=== PATIENT | female | born 1975 | race Caucasian/White ===

== ENCOUNTER 2019-07-28 16:24 | Emergency (ER) | payer OTHER ==
[~2019-07-28] VITALS: Ht 165.1 cm; Wt 72.6 kg
[2019-07-28] MEDS ORDERED: TESSALON PERLE100 MG PO (17:32)
== END 2019-07-28 17:41 | disposition home or self-care (01) ==
LOC: ED 16:24
DX: J10.1 Influenza due to other identified influenza virus with other respiratory manifestations (principal); F17.200 Nicotine dependence, unspecified, uncomplicated

== ENCOUNTER 2019-12-16 09:43 | Emergency (ER) | payer OTHER ==
[~2019-12-16] VITALS: Ht 167.6 cm; Wt 70.3 kg
[~2019-12-16 09:43] MED LIST: TESSALON PERLE100 MG PO
[2019-12-16 10:06] LABS: HEMATOCRIT 42.6 % (37.0-47.0); MEAN CELL VOLUME 87.5 fl (81.0-99.0); MEAN CORPUSCULAR HGB CONC 33.1 g/dl (33.0-37.0); MEAN PLATELET VOLUME 10.1 fl (9.6-12.3); PLATELET COUNT AUTOMATED 337 10*3/uL (130-400); RED BLOOD COUNT 4.87 10*6/uL (4.10-5.10); RED CELL DISTRI WIDTH 13.1 % (0-14.5)
[2019-12-16 10:21] LABS: ALBUMIN 3.7 gm/dl (3.1-4.5); ALKALINE PHOSPHATASE 82 U/L (45-117); BUN 8 mg/dl (7-24); CHLORIDE 106 mmol/L (98-107); CREATININE 0.76 mg/dL (0.55-1.02); POTASSIUM 3.4 mmol/L (3.5-5.1); SGOT/AST 15 IU/L (3-35); SGPT/ALT 26 U/L (12-78); SODIUM 137 mmol/L (136-145); TOTAL PROTEIN 7.2 gm/dL (6.4-8.2)
[2019-12-16 10:24] LABS: BASOPHILS 1 % (0-1); TOTAL CELLS COUNTED 100 #CELLS
[2019-12-16 10:25] LABS: OVALOCYTES FEW; PLATELET SUFFICIENCY NORMAL (NORMAL); POLYCHROMASIA SLIGHT
[2019-12-16 10:57] LABS: BILIRUBIN NEGATIVE (NEGATIVE); BLOOD 3+ (NEGATIVE); CLARITY CLOUDY (CLEAR); COLOR RED (YELLOW); GLUCOSE NEGATIVE (NEGATIVE); KETONE NEGATIVE (NEGATIVE); LEUKO ESTERASE TRACE (NEGATIVE); NITRITE NEGATIVE (NEGATIVE); UROBILINOGEN 0.2 E.U./dl (0.2-1.0)
[2019-12-16 10:58] LABS: RBC TNTC rbc/hpf (0-2)
[2019-12-16 10:59] LABS: BACTERIA 1+
== END 2019-12-16 11:39 | disposition home or self-care (01) ==
LOC: ED 09:43
PROVIDERS: Nurse Practitioner Family
DX: N93.8 Other specified abnormal uterine and vaginal bleeding (principal); Z79.899 Other long term (current) drug therapy

== ENCOUNTER → 2021-02-15 | Outpatient (CLI) | payer OTHER | END | disposition home or self-care (01) | LOC: COVID19 15:43 | PROVIDERS: ATTEND Internal Medicine | DX: Z11.52 Encounter for screening for COVID-19 (principal) ==

== ENCOUNTER → 2021-02-27 | Outpatient (CLI) | payer OTHER | END | disposition home or self-care (01) | LOC: COVID19 15:36 | PROVIDERS: ATTEND Internal Medicine | DX: U07.1 COVID-19 (principal) ==

== ENCOUNTER 2021-09-19 17:41 | Emergency (ER) | payer SELFPAY ==
[~2021-09-19] VITALS: Ht 167.6 cm; Wt 72.6 kg
[2021-09-19] MEDS ORDERED: PAROXETINE HCL20 MG PO (17:55)
[2021-09-19] MEDS ORDERED: AMOX-CLAV 875-1 EACH PO (17:56)
== END 2021-09-19 19:44 | disposition home or self-care (01) ==
LOC: ED 17:41
DX: H92.02 Otalgia, left ear (principal); Z79.899 Other long term (current) drug therapy; F17.200 Nicotine dependence, unspecified, uncomplicated

== ENCOUNTER 2021-10-29 01:32 | Emergency (ER) | payer SELFPAY ==
[~2021-10-29] VITALS: Ht 172.7 cm; Wt 86.2 kg
[~2021-10-29 01:32] MED LIST changes: +AMOX-CLAV 875-1 EACH PO; +PAROXETINE HCL20 MG PO
[2021-10-29 03:34] LABS: HEMATOCRIT 38.4 % (37.0-47.0); MEAN CELL VOLUME 88.1 fl (81.0-99.0); MEAN CORPUSCULAR HGB 28.9 pg (27.0-31.0); MEAN CORPUSCULAR HGB CONC 32.8 g/dl (33.0-37.0); MEAN PLATELET VOLUME 9.4 fl (9.6-12.3); PLATELET COUNT AUTOMATED 325 10*3/uL (130-400); RED BLOOD COUNT 4.36 10*6/uL (4.10-5.10); RED CELL DISTRI WIDTH 13.9 % (0-14.5); WHITE BLOOD COUNT 14.1 10*3/uL (4.8-10.8)
[2021-10-29 03:36] LABS: MANUAL DIFF REFLEX YES
[2021-10-29 03:50] LABS: ALKALINE PHOSPHATASE 70 U/L (45-117); BUN 11 mg/dl (7-24); CHLORIDE 111 mmol/L (98-107); CREATININE 0.64 mg/dL (0.55-1.02); LIPASE 112 U/L (73-393); POTASSIUM 3.3 mmol/L (3.5-5.1); SGOT/AST 8 IU/L (3-35); SGPT/ALT 21 U/L (12-78); SODIUM 140 mmol/L (136-145); TOTAL PROTEIN 5.9 gm/dL (6.4-8.2)
[2021-10-29 03:58] LABS: PLATELET SUFFICIENCY NORMAL (NORMAL); TOTAL CELLS COUNTED 100 #CELLS
[2021-10-29] MEDS ORDERED: TRAMADOL HCL50 MG PO (05:43)
== END 2021-10-29 05:58 | disposition home or self-care (01) ==
LOC: ED 01:32
PROVIDERS: Emergency Medicine
DX: N93.8 Other specified abnormal uterine and vaginal bleeding (principal); N83.202 Unspecified ovarian cyst, left side

== ENCOUNTER 2022-04-15 13:45 | Emergency (ER) | payer SELFPAY ==
[~2022-04-15] VITALS: Wt 72.6 kg
[~2022-04-15 13:45] MED LIST changes: +TRAMADOL HCL50 MG PO
== END 2022-04-15 15:19 | disposition left against medical advice (07) ==
LOC: ED 13:45
DX: R51.9 Headache, unspecified (principal); R11.2 Nausea with vomiting, unspecified; Z53.21 Procedure and treatment not carried out due to patient leaving prior to being seen by health care provider

== ENCOUNTER 2022-12-21 02:29 | Emergency (ER) | payer BC ==
[~2022-12-21] VITALS: Ht 167.6 cm; Wt 81.6 kg
== END 2022-12-21 03:02 | disposition home or self-care (01) ==
LOC: ED 02:29
DX: N83.202 Unspecified ovarian cyst, left side (principal)

== ENCOUNTER 2023-01-01 00:21 | Emergency (ER) | payer BC ==
[~2023-01-01] VITALS: Ht 167.6 cm; Wt 81.6 kg
== END 2023-01-01 02:15 | disposition home or self-care (01) ==
LOC: ED 00:21
DX: M72.2 Plantar fascial fibromatosis (principal)

== ENCOUNTER → 2023-01-23 | Outpatient (CLI) | payer BC | END | disposition home or self-care (01) | LOC: MRI 01:10 | PROVIDERS: ATTEND Podiatrist Foot & Ankle Surgery | DX: M19.072 Primary osteoarthritis, left ankle and foot (principal); M25.871 Other specified joint disorders, right ankle and foot; M76.822 Posterior tibial tendinitis, left leg ==

== ENCOUNTER 2023-03-23 09:38 | Emergency (ER) | payer BC ==
[~2023-03-23] VITALS: Ht 165.1 cm; Wt 83.9 kg
[2023-03-23 10:13] LABS: BASO # 0.1 10*3/uL (0.0-0.1); BASO % 0.5 % (0.0-1.0); EOS # 0.4 10*3/uL (0.0-0.4); EOS % 2.9 % (1.0-4.0); LYMPH % 36.6 % (27.0-41.0); MEAN CELL VOLUME 88.5 fl (81.0-99.0); MEAN CORPUSCULAR HGB 29.2 pg (27.0-31.0); MEAN PLATELET VOLUME 9.5 fl (9.6-12.3); MONO # 0.9 10*3/uL (0.1-1.0); MONO % 6.7 % (3.0-9.0); NEUT # 7.3 10*3/uL (2.3-7.9); NEUT % 53.1 % (47.0-73.0); PLATELET COUNT AUTOMATED 357 10*3/uL (130-400); RED BLOOD COUNT 4.86 10*6/uL (4.10-5.10); RED CELL DISTRI WIDTH 13.5 % (0-14.5); WHITE BLOOD COUNT 13.7 10*3/uL (4.8-10.8)
[2023-03-23 10:24] LABS: ACT PARTIAL THROMBO TIME 30.2 SECONDS (20.0-32.1)
[2023-03-23 10:37] LABS: ALKALINE PHOSPHATASE 96 U/L (46-116); BUN 10 mg/dl (9-23); CHLORIDE 106 mmol/L (98-107); POTASSIUM 3.8 mmol/L (3.4-5.1); SGPT/ALT 23 U/L (5-49)
[2023-03-23] MEDS ORDERED: PEPCID20 MG PO (11:08)
[2023-03-23] MEDS ORDERED: MELOXICAM15 MG PO (11:08)
== END 2023-03-23 11:12 | disposition home or self-care (01) ==
LOC: ED 09:38
PROVIDERS: Emergency Medicine
DX: R07.89 Other chest pain (principal); I10 Essential (primary) hypertension; E78.5 Hyperlipidemia, unspecified; Z86.718 Personal history of other venous thrombosis and embolism

== ENCOUNTER 2023-04-20 00:30 | Emergency (ER) | payer BC ==
[~2023-04-20] VITALS: Ht 172.7 cm; Wt 84.4 kg
[~2023-04-20 00:30] MED LIST changes: +MELOXICAM15 MG PO; +PEPCID20 MG PO
[2023-04-20 00:53] LABS: HEMATOCRIT 42.6 % (37.0-47.0); MEAN CELL VOLUME 86.9 fl (81.0-99.0); MEAN CORPUSCULAR HGB 29.6 pg (27.0-31.0); MEAN PLATELET VOLUME 9.6 fl (9.6-12.3); PLATELET COUNT AUTOMATED 319 10*3/uL (130-400); RED CELL DISTRI WIDTH 13.4 % (0-14.5); WHITE BLOOD COUNT 12.3 10*3/uL (4.8-10.8)
[2023-04-20 00:55] LABS: MANUAL DIFF REFLEX YES
[2023-04-20 01:06] LABS: ACT PARTIAL THROMBO TIME 30.7 SECONDS (20.0-32.1)
[2023-04-20 01:13] LABS: ALKALINE PHOSPHATASE 93 U/L (46-116); BUN 11 mg/dl (9-23); CHLORIDE 106 mmol/L (98-107); POTASSIUM 3.5 mmol/L (3.4-5.1); SGPT/ALT 13 U/L (5-49); TOTAL PROTEIN 6.6 gm/dL (6.0-8.0)
[2023-04-20 01:19] LABS: ATYPICAL LYMPHS 1 % (0-0); PLATELET SUFFICIENCY NORMAL (NORMAL); TOTAL CELLS COUNTED 100 #CELLS
[2023-04-20] MEDS ORDERED: PREDNISONE20 M1 PO (02:58)
== END 2023-04-20 04:37 | disposition home or self-care (01) ==
LOC: ED 00:30
PROVIDERS: Internal Medicine
DX: R07.89 Other chest pain (principal); Z79.899 Other long term (current) drug therapy; Z79.2 Long term (current) use of antibiotics; F17.200 Nicotine dependence, unspecified, uncomplicated

== ENCOUNTER 2023-04-25 01:56 | Emergency (ER) | payer BC ==
[~2023-04-25] VITALS: Ht 167.6 cm; Wt 84.4 kg
[~2023-04-25 01:56] MED LIST changes: +PREDNISONE20 M1 PO
[2023-04-25] MEDS ORDERED: PENICILLIN VK500 MG PO (02:19)
== END 2023-04-25 02:31 | disposition home or self-care (01) ==
LOC: ED 01:56
DX: K02.9 Dental caries, unspecified (principal); K08.89 Other specified disorders of teeth and supporting structures

== ENCOUNTER 2023-05-07 00:31 | Emergency (ER) | payer BC ==
[~2023-05-07] VITALS: Ht 167.6 cm; Wt 84.4 kg
[~2023-05-07 00:31] MED LIST changes: +PENICILLIN VK500 MG PO
[2023-05-07 01:17] LABS: BASO % 0.1 % (0.0-1.0); EOS # 0.4 10*3/uL (0.0-0.4); EOS % 3.5 % (1.0-4.0); HEMATOCRIT 42.7 % (37.0-47.0); LYMPH # 4.5 10*3/uL (1.3-4.4); LYMPH % 39.8 % (27.0-41.0); MEAN CELL VOLUME 89.5 fl (81.0-99.0); MEAN CORPUSCULAR HGB 28.5 pg (27.0-31.0); MEAN CORPUSCULAR HGB CONC 31.9 g/dl (33.0-37.0); MONO # 0.9 10*3/uL (0.1-1.0); MONO % 8.3 % (3.0-9.0); NEUT # 5.4 10*3/uL (2.3-7.9); NEUT % 48.1 % (47.0-73.0); PLATELET COUNT AUTOMATED 302 10*3/uL (130-400); RED BLOOD COUNT 4.77 10*6/uL (4.10-5.10); RED CELL DISTRI WIDTH 13.5 % (0-14.5); WHITE BLOOD COUNT 11.3 10*3/uL (4.8-10.8)
[2023-05-07 01:47] LABS: ALKALINE PHOSPHATASE 83 U/L (46-116); BUN 11 mg/dl (9-23); CHLORIDE 107 mmol/L (98-107); LIPASE 37 U/L (12-53); POTASSIUM 3.5 mmol/L (3.4-5.1); SGPT/ALT 13 U/L (5-49); TOTAL PROTEIN 6.1 gm/dL (6.0-8.0)
[2023-05-07 01:54] LABS: BETA-HCG, QUANT < 3.0 mIU/mL (3-10)
== END 2023-05-07 04:22 | disposition home or self-care (01) ==
LOC: ED 00:31
PROVIDERS: Internal Medicine
DX: K52.9 Noninfective gastroenteritis and colitis, unspecified (principal); R11.0 Nausea; R10.2 Pelvic and perineal pain; Z87.891 Personal history of nicotine dependence

== ENCOUNTER 2023-10-01 04:00 | Emergency (ER) | payer BC ==
[~2023-10-01] VITALS: Ht 165.1 cm; Wt 81.6 kg
[2023-10-01] MEDS ORDERED: AMOXICILLIN500 M2 PO (04:38)
[2023-10-01] MEDS ORDERED: AMOXICILLIN 500 MG CAP PO ONE (04:40)
== END 2023-10-01 04:45 | disposition home or self-care (01) ==
LOC: ED 04:00
DX: K02.9 Dental caries, unspecified (principal); K04.01 Reversible pulpitis; Z79.899 Other long term (current) drug therapy; Z79.2 Long term (current) use of antibiotics; Z87.42 Personal history of other diseases of the female genital tract

== ENCOUNTER 2023-10-17 11:55 | Emergency (ER) | payer BC ==
[~2023-10-17] VITALS: Ht 165.1 cm; Wt 81.6 kg
[~2023-10-17 11:55] MED LIST changes: +AMOXICILLIN500 M2 PO
[2023-10-17] MEDS ORDERED: LEVOFLOXACIN 750 MG TAB PO ONE (12:15)
[2023-10-17] MEDS ORDERED: CIPROFLOXACIN1 EACH OT (13:45)
[2023-10-17] MEDS ORDERED: LEVOFLOXACIN750 M2 PO (13:45)
[2023-10-17] MEDS ORDERED: METHOCARBAMOL750 M1 PO (13:45)
== END 2023-10-17 13:50 | disposition home or self-care (01) ==
LOC: ED 11:55
DX: S63.502A Unspecified sprain of left wrist, initial encounter (principal); H66.93 Otitis media, unspecified, bilateral; H60.93 Unspecified otitis externa, bilateral; F17.200 Nicotine dependence, unspecified, uncomplicated; X58.XXXA Exposure to other specified factors, initial encounter; Y93.89 Activity, other specified; Y92.89 Other specified places as the place of occurrence of the external cause; Y99.8 Other external cause status

== ENCOUNTER 2023-11-12 04:17 | Emergency (ER) | payer BC ==
[~2023-11-12] VITALS: Ht 165.1 cm; Wt 81.6 kg
[~2023-11-12 04:17] MED LIST changes: +CIPROFLOXACIN1 EACH OT; +LEVOFLOXACIN750 M2 PO; +METHOCARBAMOL750 M1 PO
[2023-11-12] MEDS ORDERED: Ketorolac Tromethamine 30 MG/ML VIAL IM ONE (04:40)
[2023-11-12] MEDS ORDERED: NAPROXEN250 MG PO (04:55)
== END 2023-11-12 05:06 | disposition home or self-care (01) ==
LOC: ED 04:17
DX: M25.532 Pain in left wrist (principal); Z79.2 Long term (current) use of antibiotics; Z79.899 Other long term (current) drug therapy; X50.0XXA Overexertion from strenuous movement or load, initial encounter; Y93.89 Activity, other specified; Y92.89 Other specified places as the place of occurrence of the external cause; Y99.8 Other external cause status

== ENCOUNTER 2024-06-26 01:31 | Emergency (ER) | payer BC ==
[~2024-06-26] VITALS: Ht 165.1 cm; Wt 83.9 kg
[~2024-06-26 01:31] MED LIST changes: +NAPROXEN250 MG PO
[2024-06-26] MEDS ORDERED: methylPREDNISolone sod succ 125 MG VIAL IM ONE (02:45)
[2024-06-26] MEDS ORDERED: PREDNISONE20 M1 PO (02:55)
== END 2024-06-26 02:55 | disposition home or self-care (01) ==
LOC: ED 01:31
DX: U07.1 COVID-19 (principal); Z79.899 Other long term (current) drug therapy

== ENCOUNTER 2024-07-01 12:34 | Emergency (ER) | payer BC ==
[~2024-07-01] VITALS: Wt 83.9 kg
[2024-07-01] MEDS ORDERED: Ketorolac Tromethamine 15 MG/ML VIAL IV ONE (13:10)
[2024-07-01] MEDS ORDERED: SODIUM CHLORIDE 0.9% 1,000 ML IV ONE (13:10)
[2024-07-01 13:28] LABS: HEMATOCRIT 46.1 % (37.0-47.0); MEAN CELL VOLUME 90.2 fl (81.0-99.0); MEAN CORPUSCULAR HGB CONC 32.1 g/dl (33.0-37.0); MEAN PLATELET VOLUME 9.7 fl (9.6-12.3); PLATELET COUNT AUTOMATED 333 10*3/uL (130-400); RED BLOOD COUNT 5.11 10*6/uL (4.10-5.10); RED CELL DISTRI WIDTH 13.8 % (0-14.5); WHITE BLOOD COUNT 12.8 10*3/uL (4.8-10.8)
[2024-07-01 13:29] LABS: MANUAL DIFF REFLEX YES
[2024-07-01 13:49] LABS: BUN 11 mg/dl (9-23); CHLORIDE 104 mmol/L (98-107); POTASSIUM 4.2 mmol/L (3.4-5.1)
[2024-07-01 13:59] LABS: BILIRUBIN Negative (Negative); BLOOD 3+ (Negative); CLARITY Clear (Clear); COLOR Yellow (Yellow); GLUCOSE Negative (Negative); KETONE Negative (Negative); LEUKO ESTERASE Negative (Negative); NITRITE Negative (Negative); UROBILINOGEN 0.2 E.U./dl (0.0-1.0)
[2024-07-01 14:00] LABS: PLATELET SUFFICIENCY NORMAL (NORMAL); TOTAL CELLS COUNTED 100 #CELLS
[2024-07-01 14:01] LABS: BURR CELLS FEW
[2024-07-01 14:37] LABS: BACTERIA 1+
== END 2024-07-01 15:23 | disposition home or self-care (01) ==
LOC: ED 12:34
PROVIDERS: Emergency Medicine
DX: R10.32 Left lower quadrant pain (principal); N93.9 Abnormal uterine and vaginal bleeding, unspecified; Z86.718 Personal history of other venous thrombosis and embolism

== ENCOUNTER 2025-05-06 14:48 | Emergency (ER) | payer SELFPAY ==
[~2025-05-06] VITALS: Ht 165.1 cm; Wt 81.6 kg
[2025-05-06] MEDS ORDERED: NITROGLYCERIN 1 IN PACKET T ONE (15:50)
[2025-05-06] MEDS ORDERED: Ondansetron Hydrochloride 4 MG/2 ML VIAL IV ONE (15:50)
[2025-05-06 15:59] LABS: BASO # 0.1 10*3/uL (0.0-0.1); BASO % 0.5 % (0.0-1.0); EOS # 0.1 10*3/uL (0.0-0.4); EOS % 0.7 % (1.0-4.0); MEAN CELL VOLUME 87.2 fl (81.0-99.0); MEAN CORPUSCULAR HGB 29.0 pg (27.0-31.0); MEAN PLATELET VOLUME 9.7 fl (9.6-12.3); MONO # 0.9 10*3/uL (0.1-1.0); MONO % 6.5 % (3.0-9.0); NEUT # 8.2 10*3/uL (2.3-7.9); NEUT % 60.3 % (47.0-73.0); NUCLEATED RED BLOOD CELL 0.0 % (0.0-0.0); NUCLEATED RED BLOOD CELL 0.0 10*3/uL (0.0-0.0); PLATELET COUNT AUTOMATED 337 10*3/uL (130-400); RED CELL DISTRI WIDTH 13.2 % (0-14.5)
[2025-05-06 16:31] LABS: BUN 9 mg/dl (9-23); CPK 42 U/L (34-171); SGPT/ALT 16 U/L (5-49)
[2025-05-06] MEDS ORDERED: Metoclopramide Hydrochloride 10 MG/2 ML VIAL IV ONE (17:25)
[2025-05-06] MEDS ORDERED: diphenhydrAMINE hydrochloride 50 MG/ML VIAL IV ONE (17:25)
[2025-05-06] MEDS ORDERED: CARAFATE1 G1 PO (18:28)
[2025-05-06] MEDS ORDERED: PROTONIX40 MG PO (18:28)
[2025-05-06] MEDS ORDERED: Ondansetron4 MG PO (18:28)
[2025-05-06] MEDS ORDERED: REGLAN10 M1 PO (18:28)
== END 2025-05-06 18:44 | disposition home or self-care (01) ==
LOC: ED 14:48
PROVIDERS: Emergency Medicine
DX: K29.70 Gastritis, unspecified, without bleeding (principal); R07.89 Other chest pain; R10.10 Upper abdominal pain, unspecified; F41.9 Anxiety disorder, unspecified; F32.A Depression, unspecified; Z86.718 Personal history of other venous thrombosis and embolism